=== PATIENT | female | born 1985 | race Two or more races ===

== ENCOUNTER 2023-03-04 17:53 | Emergency (ER) | payer OTHER ==
[2023-03-04 18:10] VITALS: BP 115/72; PULSE 88; RESP 20; TEMP 98.3; BMI 26.5
== END 2023-03-04 18:56 | disposition home or self-care (01) ==
LOC: JER 17:53
DX: S90.212A Contusion of left great toe with damage to nail, initial encounter (principal); M79.675 Pain in left toe(s); W20.8XXA Other cause of strike by thrown, projected or falling object, initial encounter
CPT/HCPCS: 73630-TC-LT; 99283-25